=== PATIENT | female | born 1960 | race Caucasian/White ===

== ENCOUNTER 2016-11-26 14:28 | Emergency (ER) | payer BC ==
--- NOTE | 2016-11-26 15:44 | EDM.PDOC ---
ED HPI GENERAL MEDICAL PROBLEM - General Chief Complaint: Lower Extremity Injury/Pain Stated Complaint: HURT ANKLE Time Seen by Provider: 11/26/16 15:32 Source of Information: Reports: Patient History Limitations: Reports: No Limitations - History of Present Illness INITIAL COMMENTS - FREE TEXT/NARRATIVE: HISTORY AND PHYSICAL: History of present illness: [56-year-old female with no significant past medical history now presents to the emergency department complaining of left ankle pain after twisting her ankle. She was walking and inverted her left ankle. Pain and swelling since. Weightbearing limited by discomfort. No prior injury or surgery to this ankle. She has no bone or bleeding problems and does not take blood thinners. No other complaints] Review of systems: As per history of present illness and below otherwise all systems reviewed and negative. Past medical history: As per history of present illness and as reviewed below otherwise noncontributory. Surgical history: As per history of present illness and as reviewed below otherwise noncontributory. Social history: No reported history of drug or alcohol abuse. Family history: As per history of present illness and as reviewed below otherwise noncontributory. Physical exam: HEENT: Normocephalic, atraumatic, pupils normal and symmetrical, supple neck, no meningismus, normal color Lungs: Normal and symmetrical chest wall excursion bilateral with no tachypnea or increased work of breathing, grossly normal chest exam Heart: No tachycardia in triage Abdomen: Normal-appearing, nondistended, no visible mass or asymmetry Pelvis: Normal-appearing Genitourinary: Deferred Rectal exam: Deferred Extremities: Atraumatic, normal use and range of motion, no visible evidence of gross neurovascular compromise Neuro: Awake, alert, oriented. Normal and appropriate mental status. Cranial nerves grossly unremarkable. Motor function normal. Nonfocal neurologic exam. Diagnostics: [X-ray of the ankle and foot but no displaced fracture interpreted by me] Therapeutics: [Posterior splint Ortho-Glass Uriel applied by nurse and ER M.Matt. Neurovascularly intact status post application. Patient tolerated well. Heart social applied and discussed crutches dispensed] Impression: [Ankle sprain] Plan: [Signs and symptoms consistent with sprain confirmed by x-ray Patient aware to follow-up with PCP for reevaluation and referral as needed. She is aware the possibility of nondisplaced fracture.] Definitive disposition and diagnosis as appropriate pending reevaluation and review of above. left foot Pain Score (Numeric/FACES): 9 - Related Data Allergies Allergy/AdvReac Type Severity Reaction Status Date / Time sulfamethoxazole Allergy Rash Verified 11/26/16 15:23 [From Bactrim] trimethoprim [From Bactrim] Allergy Rash Verified 11/26/16 15:23 Home Meds: Home Meds . [No Known Home Meds] 11/24/15 [History] Past Medical History - Past Health History Medical/Surgical History: Denies Medical/Surgical History Cardiovascular History: Reports: None Respiratory History: Reports: None Gastrointestinal History: Reports: None Genitourinary History: Reports: None [employer] History: Reports: Musculoskeletal History: Reports: None Neurological History: Reports: None Psychiatric History: Reports: None Endocrine/Metabolic History: Reports: None Hematologic History: Reports: None Immunologic History: Reports: None Oncologic (Cancer) History: Reports: None Dermatologic History: Reports: None - Infectious Disease History Infectious Disease History: Reports: Chicken Pox - Past Surgical History Head Surgeries/Procedures: Reports: None HEENT Surgical History: Reports: Tonsillectomy Social & Family History - Family History Family Medical History: Noncontributory - Tobacco Use Smoking Status *Q: Never Smoker - Recreational Drug Use Recreational Drug Use: No Review of Systems - Review of Systems Review Of Systems: See Below (History of present illness) ED EXAM, GENERAL - Physical Exam Exam: See Below (History of present illness) Course - Vital Signs Last Recorded V/S: Last Vital Signs Temp 37.0 C 11/26/16 14:28 Pulse 93 11/26/16 14:28 Resp 18 11/26/16 14:28 BP 169/70 H 11/26/16 14:28 Pulse Ox 94 L 11/26/16 14:28 - Orders/Labs/Meds Orders: Active Orders 24 hr Category Date Time Status Ankle Min 3V Lt [CR] Stat Exams 11/26/16 15:32 Taken Foot Comp Min 3V Lt [CR] Stat Exams 11/26/16 15:32 Taken Meds: Medications Discontinued Medications Generic Name Dose Route Start Last Admin Trade Name Freq PRN Reason Stop Dose Admin Acetaminophen 1,000 mg 11/26/16 16:27 Tylenol Extra Strength PO 11/26/16 16:28 ONETIME ONE Hydrocodone Bitart/Acetaminophen 1 tab 11/26/16 16:28 11/26/16 16:33 [place] 325-5 Mg PO 11/26/16 16:29 1 tab ONETIME ONE Administration Departure - Departure Time of Disposition: 17:16 Disposition: Home, Self-Care 01 Condition: Good Clinical Impression: Sprain of ankle - Discharge Information Instructions: Crutch Use, [id number], Ankle Sprain, [id number] Referrals: Migue Shaw MD [Primary Care Provider] - Forms: ED Department Discharge Additional Instructions: Your findings are consistent with ankle sprain today. Wear splint and use crutches with careful weightbearing only as tolerated until follow-up with your Dr. for reevaluation and referral to orthopedics as needed. Ibuprofen 800 mg every 6 hours and use [place] as needed for breakthrough pain. Rest apply ice and elevate your ankle above your heart when ever possible especially for the next day or 2. As we discussed , you are aware of the possibility of a nondisplaced fracture of your foot or ankle, and that the treatment of rest ice elevation posterior splint with crutches and outpatient follow-up would be the same. Follow-up with Dr. Molina in several days for reevaluation and if necessary he can refer you to an orthopedic doctor as needed. - My Orders Last 24 Hours: My Active Orders 11/26/16 15:32 Ankle Min 3V Lt [CR] Stat Foot Comp Min 3V Lt [CR] Stat - Assessment/Plan Last 24 Hours: My Active Orders 11/26/16 15:32 Ankle Min 3V Lt [CR] Stat Foot Comp Min 3V Lt [CR] Stat
[2016-11-26] MEDS ORDERED: Acetaminophen 500 MG Tab PO ONE (16:27)
[2016-11-26] MEDS ORDERED: Acetaminophen/HYDROcodone 325-5 MG Tab PO ONE (16:28)
[2016-11-26 17:16] VITALS: BP 142/82
--- NOTE | 2016-11-26 19:49 | CR ---
EXAM DATE: 11/26/16 PATIENT'S AGE: 56 Patient: ARETHA TAYLOR Facility: [place], [place] Site . Site : 1960 Study: XRay Extremity Left Foot [id number]/28/2017 4:00:13 PM Ordering Physician: Logan Kaba Final Report: RIGHT ANKLE AND FOOT INDICATION: Injury. COMPARISON: None. FINDINGS/IMPRESSION: Mild soft tissue swelling about the ankle and over the dorsum of the foot. No fracture, dislocation, or other acute osseous abnormality identified. Normal ankle mortise. Mild hallux valgus. Small plantar calcaneal spur. Dictated by Greg Moss MD @ 11/26/2016 4:11:18 PM Dictated by: Greg Moss MD @ 11/26/2016 16:12:21 (Electronic Signature) Report Signed by Proxy. MTDMatt
--- NOTE | 2016-11-26 19:50 | CR ---
EXAM DATE: 11/26/16 PATIENT'S AGE: 56 Patient: ARETHA TAYLOR Facility: [place], [place] Site . Site : 1960 Study: XRay Extremity Left Ankle [id number]/28/2017 4:02:23 PM Ordering Physician: Logan Kaba Final Report: RIGHT ANKLE AND FOOT INDICATION: Injury. COMPARISON: None. FINDINGS/IMPRESSION: Mild soft tissue swelling about the ankle and over the dorsum of the foot. No fracture, dislocation, or other acute osseous abnormality identified. Normal ankle mortise. Mild hallux valgus. Small plantar calcaneal spur. Dictated by Greg Moss MD @ 11/26/2016 4:11:18 PM Dictated by: Greg Moss MD @ 11/26/2016 16:12:05 (Electronic Signature) Report Signed by Proxy. MTDMatt
== END 2016-11-26 17:23 | disposition home or self-care (01) ==
LOC: MW.ED 14:28
DX: S93.402A Sprain of unspecified ligament of left ankle, initial encounter (principal); Z88.2 Allergy status to sulfonamides; Z88.1 Allergy status to other antibiotic agents; Z98.890 Other specified postprocedural states; X50.9XXA Other and unspecified overexertion or strenuous movements or postures, initial encounter
CPT/HCPCS: 73610; 73630; 99283; A9270; 99282